=== PATIENT | male | born 1990 | race Caucasian/White ===

== ENCOUNTER 2021-06-30 08:55 | Outpatient (REF) | payer OTHER, SELFPAY ==
--- NOTE | ~2021-06-30 | XR_ITS ---
EXAMINATION: XR HAND, LEFT CLINICAL INFORMATION: Pain left hand. COMPARISON: None TECHNIQUE: PA, lateral, and oblique views of the left hand. FINDINGS: There is comminuted fracture involving the distal phalangeal of first distal phalanx. No significant angulation or displacement major fragments. No significant distraction. The remainder of the bony structures appear intact. Normal bony mineralization. No arthropathy. XR/XR hand LT min 3V IMPRESSION: Comminuted fracture distal. First distal phalanx.
== END 2021-06-30 08:56 | disposition home or self-care (01) ==
LOC: HO.HOSX 08:55
PROVIDERS: Visit Provider Orthopaedic Surgery
DX: S62.522B Displaced fracture of distal phalanx of left thumb, initial encounter for open fracture (principal); S69.92XA Unspecified injury of left wrist, hand and finger(s), initial encounter
CPT/HCPCS: 26750; 73130; 99202

== ENCOUNTER 2021-07-02 11:54 | Day surgery (SDC) | payer OTHER, SELFPAY ==
[2021-07-02 12:03] VITALS: BMI 22.3
[2021-07-02 12:07] VITALS: BP 101/61; PULSE 82; RESP 16; TEMP 36.9; O2SAT 97
--- NOTE | 2021-07-02 13:01 | MHC.SHP ---
Pre-Procedural Eval Section A Date of Service: 07/02/21 The patient is an INPATIENT: No Changes since office visit: No Cold of Flu in the past 2 weeks, No New Medical Problems, No Changes in Medication and No Patient answered all questions The History & Physical has been completed within 30 days and I have reviewed it.: Yes Section B Chief Complaint: fx distal phalanx of left thumb,injury to left wri Allergies: Allergies Allergy/AdvReac Type Severity Reaction Status Date / Time No Known Allergies Allergy Verified 06/30/21 16:05 Plan I have reviewed the history and physical and performed a pertinent physical examination on my patient. No changes have occurred unless specified.
--- NOTE | 2021-07-02 13:01 | W.PM.OPN ---
Operative Note Operative Note Date of Service: 07/02/21 Narrative: Operative Note Preop diagnosis: 1. left thumb open distal phalanx fracture 2. Left thumb on nail bed injury Postop diagnosis: same Procedure: 1. left thumb I and D open distal phalanx fracture 2. Left thumb removal of nail plate and nail bed repair Surgeon: Shyla Argueta MD Anesthesia: digital block using 1% lidocaine with epinephrine Findings: stellate laceration of the nail bed directly over the distal phalanx fracture. Hematoma , butno purulence present. Wound clean. EBL: Less than 5 mL Tourniquet time: None Specimens: None Complications: None Disposition: Brought to recovery room in stable condition Plan: Follow-up for 7-10 days for wound check and suture removal and to check pathology Indications: The patient is 31 years old, with left open distal phalanx fracture with a nail bed injury and the distal part of the nail adherent to the nail bed and the proximal aspect of the nail plate avulsed and sitting dorsal to the eponychial fold. . The risks and benefits of operative treatment including but not limited to risk of damage to blood vessels, nerves, tendons, infection, persistent pain, persistent symptoms, recurrence or possible need for additional surgery were discussed with the patient and the patient wishes to proceed with surgery. Procedure: Once consent was obtained a digital block was performed in the preop area using a combination of 1% lidocaine with epinephrine. The patient was then brought back to the operating suite and placed on the operative table in supine position. A tourniquet was applied to the proximal aspect of the Left upper extremity and the limb was prepped and draped in a standard surgical fashion. Once assured that we had a good block, the nail plate attachment at the distal aspect of the nail bed was carefully removed using a [place] elevator. It was placed on the back table. There was some old hematoma present over the nail bed which was carefully debrided to reveal a stellate laceration of the distal half of the nail bed. The distal phalanx fracture was appreciated within the wound. This was copiously irrigated with normal saline. The wound edges of the nail bed were then reapproximated using some 6 0 gut Absorbable suture. Some antibiotic ointment was placed over the nail bed and a sterile dressing was applied. The patient appears to have tolerated the procedure well and with no complications. All digits were well vascularized at the conclusion of the case.
[2021-07-02 13:35] VITALS: BP 123/69; PULSE 70; RESP 16; TEMP 36.9; O2SAT 98
== END 2021-07-02 14:06 | disposition home or self-care (01) ==
PROVIDERS: Visit Provider Orthopaedic Surgery
PROC: (CPT 11760; principal; 2021-07-02 14:10)
DX: S62.522B Displaced fracture of distal phalanx of left thumb, initial encounter for open fracture (principal); W01.0XXA Fall on same level from slipping, tripping and stumbling without subsequent striking against object, initial encounter; Y93.01 Activity, walking, marching and hiking; Y92.9 Unspecified place or not applicable; Y99.8 Other external cause status
CPT/HCPCS: 11760; 10140; J0171

== ENCOUNTER 2022-02-12 18:54 | Emergency (ER) | payer OTHER, SELFPAY ==
[2022-02-12 19:04] VITALS: BP 128/51; PULSE 60; RESP 18; O2SAT 100; BMI 23.3
--- NOTE | 2022-02-12 19:07 | ED.GENADULT ---
HPI - General Adult General Chief complaint: Wound/Laceration Stated complaint: lip pain Time Seen by Provider: 02/12/22 19:39 Source: patient Mode of arrival: ambulatory Limitations: no limitations History of Present Illness HPI narrative: 31-year-old male presents to the ER for evaluation of laceration to his lower lip after he opened a metal door and hit him in the face. He states he has a bleeding laceration to the bottom right portion of his lower lip and some cuts on the inside of his lip from where his teeth bit. He denies any other facial trauma. He is not anticoagulation. No loose teeth. MD complaint: Lip laceration Onset (ago): hour(s) Location: mouth Radiation: non-radiation Severity: moderate Quality: aching Pain Consistency: constant Relieving factors: other (Ice) Exacerbating factors: other (Palpation) Associated symptoms: denies other symptoms Treatments prior to arrival: none Related Data Previous Rx's Medication Instructions Recorded amoxicillin 875 mg-potassium 1 tab PO BID #14 tabs 07/02/21 clavulanate 125 mg tablet hydrocodone 5 mg-acetaminophen 325 1 tab PO Q4-6H PRN pain #5 tabs 07/02/21 mg tablet Allergies Allergy/AdvReac Type Severity Reaction Status Date / Time No Known Allergies Allergy Verified 06/30/21 16:05 Review of Systems Review of Systems: Constitutional: No Fever, No Chills ENT/Mouth: No sore throat, No Rhinorrhea, No Swallowing Difficulty, +Lip swelling Cardiovascular: No Chest Pain, No SOB Gastrointestinal: No Nausea, No Vomiting Musculoskeletal: No joint pain, No Myalgias Skin: + Skin Lesions, No rash Neuro: No Weakness, No Numbness, No Dizziness, No Headache Heme/Lymph: + Bruising, No Lymphadenopathy PMFSH Social History Social History Patient Tobacco Use Status: Never used Tobacco Advance Directives: No Advance Directives Information Provided: No Current occupational status: employed Current occupation: rt hand/ [employer] Physical Exam ED Vital Signs: Vital Signs - 24 hr 02/12/22 19:04 Pulse Rate 60 Respiratory Rate 18 Blood Pressure 128/51 L Pulse Oximetry 100 Oxygen Delivery Method Room Air BMI result Body Mass Index 23.3 Appearance: Alert. Oriented X3. No acute distress. HEENT: There is generalized swelling of the lower lip with a tiny 0.5 cm involving the vermilion border, does not appear to be a through and through lac. inner lip with superficial abrasions x2. ecchymosis of inner lip CVS: Normal heart rate and rhythm. Pulses normal. Respiratory: No respiratory distress. Skin: Skin warm and dry. Normal skin color. Normal skin turgor. No rashes. Extremities: Normal inspection x4, normal range of motion. Neuro: Oriented X 3. No motor deficit. No sensory deficit. Course Course Course Narrative: RME - 31 yo male presenting with a laceration to his lower lip after he opened a metal door and it hit him in the face. He has a laceration that is bleeding on the outside of the lip as well as a few cuts on the inside of the lower lip. Does not appear to go through and through on brief exam. Outter lac amenable to a suture for closure and opitmal healing, close to brent border. Patient UTD on Tdap Reevaluation(s) Reevaluation #1: Laceration repair performed with adequate approximation of wound borders, brent border lines up nicely. Patient stable for discharge home PE Medications Administered Discontinued Medications Generic Name Dose Route Start Last Admin Trade Name Freq PRN Reason Stop Dose Admin Lidocaine HCl 5 ml 02/12/22 19:40 02/12/22 19:49 Lidocaine Hcl 2 % Mpf 5 Ml Vial INFILTRATI 02/12/22 19:41 5 ml ONCE ONE Administration Procedures Laceration Laceration 1: Site: lip Side (If applicable): right Size (cm): 0.5 Description: linear Depth: simple, single layer Local Anesthetic: lidocaine 2% Amount of anesthesia used (mL): 0.25 Pre-repair: wound explored, irrigated extensively and deep structures intact Skin layer closed with: other (absorbable) Size (cm): 5-0 Number of sutures: 1 Technique: simple, interrupted Discharge Plan Discharge Clinical Impression: Laceration of lip Patient Disposition: Home, Self-Care Instructions: Facial Laceration (ED) Additional Instructions: Avoid foods that are crunchy or hard, avoid any foods that could get stuck in the wounds of your inner lip The suture placed in the lip will dissolve on its own Use ice to the area several times per day to help with pain and swelling Take motrin and tylenol as needed for pain If you develop new or worsening symptoms call 911 or come back to the ER for further evaluation. Evite los alimentos que son crujientes o duros, evite cualquier alimento que pueda atascarse en las heridas de peterson labio interno. La sutura colocada en el labio se disolver? por s? claribel. Use hielo en el ?jaz varias veces al d?a para ayudar con el dolor y la hinchaz?n. [place] motrin y tylenol seg?n sea necesario para el dolor Si desarrolla s?ntomas nuevos o que empeoran, llame al 911 o regrese a la huey de emergencias para rut evaluaci?n adicional. Prescriptions: No Action hydrocodone-acetaminophen 5-325 mg tablet 1 tab PO Q4-6H PRN (Reason: pain) Qty: 5 0RF amoxicillin-pot clavulanate 875-125 mg tablet 1 tab PO BID Qty: 14 0RF Interventions: ED Discharge Assessment Last Done: 02/12/22 20:00 Discharge Date/Time: 02/12/22 20:01 Print Language: Marshallese
== END 2022-02-12 20:01 | disposition home or self-care (01) ==
LOC: HO.ED 19:56
PROVIDERS: Emergency Provider Emergency Medicine
DX: S01.511A Laceration without foreign body of lip, initial encounter (principal); R51.9 Headache, unspecified; W18.30XA Fall on same level, unspecified, initial encounter; Y93.9 Activity, unspecified; Y92.9 Unspecified place or not applicable; Y99.9 Unspecified external cause status
CPT/HCPCS: 12011; 99282; 99284

== ENCOUNTER → 2022-04-09 09:55 | Outpatient (BNVA) | payer SELFPAY | PROVIDERS: Visit Provider Physician Assistant Medical | DX: Z02.79 Encounter for issue of other medical certificate (principal) ==

== ENCOUNTER 2023-04-01 14:42 | Outpatient (REF) | payer OTHER, SELFPAY ==
[2023-04-01 16:28] LABS: Anion Gap 14 (12-20); Blood Urea Nitrogen 17 mg/dL (9-16); Calcium 9.9 mg/dL (8.4-10.2); Carbon Dioxide 28 mmol/L (22-29); Chloride 99 mmol/L (96-108); Cholesterol 192 mg/dL (<200); Estimated Glomerular Filt Rate > 60; Glucose Random 83 mg/dL (60-115); HDL Cholesterol 53 mg/dL (>40); LDL Cholesterol Calculated 127 mg/dL (<100); Potassium 4.3 mmol/L (3.3-5.1); Sodium 137 mmol/L (135-145); Triglycerides 64 mg/dL (<150)
[2023-04-02 03:48] LABS: CT PCR NOT DETECTED (Not Detect.); NG PCR NOT DETECTED (Not Detect.)
[2023-04-02 03:54] LABS: HIV AB/AG Nonreactive (Nonreactive); HIV Num 1 0.05 S/CO (0.00-0.99); ~HepC Num1 0.13 S/CO (0.00-0.79); ~Hepatitis C Antibody Nonreactive (Nonreactive)
[2023-04-04 12:18] LABS: RPR Rapid Plasma Reagin NON-REACTIVE (NON-REACTIVE)
== END 2023-04-01 14:43 | disposition home or self-care (01) ==
LOC: HO.HHCL 14:42
PROVIDERS: Visit Provider Nurse Practitioner Family
DX: Z00.00 Encounter for general adult medical examination without abnormal findings (principal); Z11.4 Encounter for screening for human immunodeficiency virus [HIV]; Z20.2 Contact with and (suspected) exposure to infections with a predominantly sexual mode of transmission
CPT/HCPCS: 0353U; 36415; 80048; 80061; 86592; 86803; 87389